=== PATIENT | male | born 1965 | race Hispanic/Latino ===

== ENCOUNTER 2023-11-27 09:37 | Day surgery (SDC) | payer OTHER ==
[~2023-11-27] VITALS: Ht 167.6 cm; Wt 66.7 kg
[~2023-11-27 09:37] MED LIST: ALLOPURINOL100 MG PO; COLCHICINE0.6 M2 PO; ENALAPRIL20 MG PO; METFORMIN500 M2 PO; PREDNISONE20 MG PO; TRAMADOL HCL50 MG PO
[2023-11-27] MEDS ORDERED: FAMOTIDINE 10MG/ML 2ML SDV IV ONE ×2 (09:48→09:56)
[2023-11-27] MEDS ORDERED: SODIUM CHLORIDE 0.9% 0 ML IV ONE (09:48)
[2023-11-27] MEDS ORDERED: SODIUM CHLORIDE 0.9% 1,000 ML IV ONE (09:56)
[2023-11-27] MEDS ORDERED: METOCLOPRAMIDE HCL 10 MG/2 ML SDV ONE (09:56)
[2023-11-27] MEDS ORDERED: SODIUM CHLORIDE 0.9% 50 ML IV ONE (09:56)
[2023-11-27 11:23] VITALS: BP 138/90
== END 2023-11-27 11:10 | disposition home or self-care (01) ==
LOC: ENDO 09:37 → ORM 10:00 → ENDO 11:00 → ORM 11:30 → ENDO 13:00
PROVIDERS: ATTEND Surgery
DX: Z12.11 Encounter for screening for malignant neoplasm of colon (principal); Z80.0 Family history of malignant neoplasm of digestive organs; I10 Essential (primary) hypertension; Z53.20 Procedure and treatment not carried out because of patient's decision for unspecified reasons

== ENCOUNTER 2023-11-27 11:43 | Emergency (ER) | payer OTHER ==
[2023-11-27] VITALS (7 sets, daily range): BP systolic 113–147; BP diastolic 82–101
[~2023-11-27] VITALS: Ht 167.6 cm; Wt 68.0 kg
== END 2023-11-27 13:15 | disposition home or self-care (01) ==
LOC: ED 11:43
DX: S61.214A Laceration without foreign body of right ring finger without damage to nail, initial encounter (principal); I10 Essential (primary) hypertension; E11.9 Type 2 diabetes mellitus without complications; W23.0XXA Caught, crushed, jammed, or pinched between moving objects, initial encounter; Z72.0 Tobacco use; Z53.9 Procedure and treatment not carried out, unspecified reason

== ENCOUNTER 2023-12-07 08:04 | Emergency (ER) | payer OTHER ==
[~2023-12-07] VITALS: Ht 167.6 cm; Wt 77.1 kg
[2023-12-07 08:28] VITALS: BP 130/94
[2023-12-07 08:30] VITALS: BP 134/98
[2023-12-07 08:45] VITALS: BP 148/107
== END 2023-12-07 08:46 | disposition home or self-care (01) ==
LOC: ED 08:04
DX: S61.210D Laceration without foreign body of right index finger without damage to nail, subsequent encounter (principal); X58.XXXD Exposure to other specified factors, subsequent encounter

== ENCOUNTER 2024-06-26 00:56 | Emergency (ER) | payer OTHER ==
[~2024-06-26] VITALS: Ht 167.6 cm; Wt 86.0 kg
[2024-06-26 02:00] VITALS: BP 127/86
[2024-06-26 02:14] LABS: BASO% 0.5 % (0-3); EOS% 2.3 % (0-8); HEMOGLOBIN 15.9 g/dl (14.0-18.0); LYMPH% 30.8 % (15-41); MEAN CELL VOLUME 87.2 fL CALC (80.0-100.0); MEAN CORPUSCULAR HGB 29.2 pG CALC (26.0-32.0); MEAN CORPUSCULAR HGB CONC 33.5 g/dL CAL (32.0-36.0); NEUT# 3.16 thou/uL (1.82-7.42); NEUT% 56.4 % (42-76); RED BLOOD COUNT 5.45 mill/uL (4.70-6.10)
[2024-06-26 02:15] VITALS: BP 121/89
[2024-06-26 02:18] LABS: HEMATOCRIT 47.5 % (39.0-50.0)
[2024-06-26 02:24] LABS: ALBUMIN 4.3 g/dL (3.2-5.0); CREATININE 1.3 mg/dL (0.7-1.3); POTASSIUM 4.1 mmol/l (3.5-5.1); TOTAL PROTEIN 7.1 g/dL (6.3-8.2)
[2024-06-26 02:26] LABS: BILIRUBIN, TOTAL 0.6 mg/dL (0.2-1.3)
[2024-06-26 02:30] VITALS: BP 122/88
[2024-06-26 02:34] LABS: URINE BILIRUBIN - DIPSTICK Negative (NEGATIVE); URINE BLOOD DIPSTICK Small (NEGATIVE); URINE GLUCOSE - DIPSTICK Negative (NEGATIVE); URINE KETONE Negative (NEGATIVE); URINE LEUK ESTERASE Negative (NEGATIVE); URINE NITRITE - DIPSTICK Negative (Negative); URINE PH 5.5 (4.5-8.0); URINE PROTEIN - DIPSTICK Negative (NEG-TRACE); URINE UROBILINOGEN - DIPSTICK 0.2 E.U./dL (0.2)
[2024-06-26 02:35] LABS: URINE COLOR Yellow
[2024-06-26 02:42] LABS: URINE MUCUS RARE hpf (NONE-FEW); URINE RBC 0-2 RBC/hpf (0-5)
[2024-06-26 02:46] VITALS: BP 116/71
[2024-06-26 03:00] VITALS: BP 125/85
[2024-06-26 03:15] VITALS: BP 123/81
== END 2024-06-26 03:17 | disposition home or self-care (01) ==
LOC: ED 00:56
PROVIDERS: Family Medicine
DX: E11.65 Type 2 diabetes mellitus with hyperglycemia (principal); I10 Essential (primary) hypertension

== ENCOUNTER 2024-07-13 20:52 | Emergency (ER) | payer OTHER ==
[~2024-07-13] VITALS: Ht 167.6 cm; Wt 75.0 kg
[2024-07-13] MEDS ORDERED: GLIPIZIDE5 M2 PO (21:07)
[2024-07-13] MEDS ORDERED: COZAAR100 MG PO (21:07)
[2024-07-13] MEDS ORDERED: AMARYL1 MG PO (21:08)
[2024-07-13 21:11] VITALS: BP 129/92
[2024-07-13 21:15] VITALS: BP 128/97
[2024-07-13 21:30] VITALS: BP 123/94
[2024-07-13 21:45] VITALS: BP 133/98
[2024-07-13 22:00] VITALS: BP 135/91
[2024-07-13 22:07] VITALS: BP 135/91
== END 2024-07-13 22:13 | disposition home or self-care (01) ==
LOC: ED 20:52
DX: I10 Essential (primary) hypertension (principal); E11.9 Type 2 diabetes mellitus without complications; Z79.84 Long term (current) use of oral hypoglycemic drugs